=== PATIENT | male | born 1990 | race African-American/Black ===

== ENCOUNTER 2021-03-31 16:46 | Emergency (ER) | payer OTHER ==
[~2021-03-31] VITALS: Ht 170.2 cm; Wt 74.5 kg
[2021-03-31] MEDS ORDERED: predniSONE 20 MG TAB PO ONE (22:25)
[2021-03-31 23:40] VITALS: BP 121/65
== END 2021-03-31 23:41 | disposition home or self-care (01) ==
LOC: M ED 16:46
DX: S00.96XA Insect bite (nonvenomous) of unspecified part of head, initial encounter (principal); Y92.9 Unspecified place or not applicable; Y93.9 Activity, unspecified; Y99.9 Unspecified external cause status; Z91.030 Bee allergy status
CPT/HCPCS: 99283; J7512